=== PATIENT | male | born 1985 | race Caucasian/White ===

== ENCOUNTER 2016-10-22 20:18 | Emergency (ER) | payer BC ==
--- NOTE | ~2016-10-22 | CR181 ---
[facility] A Service of [facility] RADIOLOGY TEXT RESULTS PATIENT: CODY PALOMINO LOCATION: [facility] : 83 UNIT #: [id number] AGE: [address]: Catherine Mccloud MD SEX: M ORDER DR: [id number] [facility] [address] [place], [place] [address] [id number] MR#: [id number] #: [id number] NAME: CODY PALOMINO : 1985 SEX: M STUDY DATE/TIME: 10/22/2016 23:54 UNIT: [facility] ROOM: STUDY DESCRIPTION: CR Lumbar Spine 2 or 3 Views Attending Physician: Catherine Mccloud M.D. Ordering Physician: Catherine Mccloud M.D. Primary Care Physician: Primary Care Physician No MEDICAL IMAGING REPORT This report is preliminary unless electronic signature is present EXAM Lumbar spine 10/22/2016 HISTORY 31-year-old male in the ED complaining of 1-day history of right-sided back pain, present upon awakening. No reported acute injury. TECHNIQUE Three-view lumbar spine series. FINDINGS The examination is negative. No acute or chronic fracture deformity or additional osseous lesion is demonstrated. Lumbar disc spaces and lumbar vertebral alignment are within normal limits. IMPRESSION Negative lumbar spine series. Dictated by... Jamal Dangelo M.D. THIS IS AN ELECTRONICALLY VERIFIED REPORT Jamal Dangelo M.D. at 10/23/2016 9:57 PM DOLLY/alban TD: 10/23/2016 09:01 JOB #: [id number] MEDICAL IMAGING REPORT Page 1 of 1 COPY
[2016-10-22 23:56] LABS: URINE SOURCE CLEAN CATCH
[2016-10-22 23:59] LABS: URINE APPEARANCE TURBID; URINE BILIRUBIN NEG (NEG); URINE BLOOD NEG (NEG); URINE COLOR YELLOW; URINE GLUCOSE NEG (NEG); URINE KETONE NEG (NEG); URINE LEUKOCYTE ESTERASE NEG (NEG); URINE NITRATE NEG (NEG); URINE PROTEIN NEG (NEG); URINE SPECIFIC GRAVITY 1.024 (1.003-1.035)
[2016-10-23 00:07] LABS: CULTURE INDICATED? NO
== END 2016-10-23 00:55 | disposition home or self-care (01) ==
LOC: CED 20:18
PROVIDERS: Emergency Medicine
DX: M79.1 Myalgia (principal); Z88.0 Allergy status to penicillin
CPT/HCPCS: 72100; 81003; 99283